=== PATIENT | female | born 1965 | race Caucasian/White ===

== ENCOUNTER 2023-05-23 09:15 | Emergency (ER) | payer OTHER ==
[~2023-05-23] VITALS: Ht 172.7 cm; Wt 64.0 kg
[2023-05-23 10:35] LABS: BASOPHILS % 0.8 % (0.0-2.0); CHLORIDE 96 mEq/L (98-107); EOSINOPHILS % 0.7 % (0.0-5.0); HEMATOCRIT. 31.2 % (36.0-48.0); HEMOGLOBIN. 10.1 g/dL (12.0-16.0); INDEX HEMOLYSI 1 (1-3); INDEX ICTERIC 1 (1-4); INDEX LIPEMIC 1 (1-3); LYMPHOCYTES % 7.5 % (20.0-50.0); MEAN CORPUSCULAR HEMOGLOBIN 27.8 pg (28.0-32.0); MEAN CORPUSCULAR HGB CONC 32.2 g/dL (31.0-37.0); MEAN CORPUSCULAR VOLUME 86.2 fL (81.0-99.0); PLATELET 276 x1000/uL (130-400); POTASSIUM 5.6 mEq/L (3.5-5.1); RED BLOOD CELL COUNT 3.62 mill/uL (4.2-5.4); RED CELL DISTRIBUTION WIDTH 17.6 % (11.6-14.6); SODIUM 131 mEq/L (136-145)
[2023-05-23 10:43] LABS: ALANINE AMINOTRANSFERASE 22 IU/L (13-61); ALBUMIN 2.8 g/dL (3.4-5.0); ASPARTATE AMINOTRANSFERASE 29 IU/L (15-37); BILIRUBIN TOTAL 1.1 mg/dL (0.1-1.0); CALCIUM 8.4 mg/dL (8.5-10.1); CARBON DIOXIDE 23 mEq/L (21-32); CREATININE 4.3 mg/dL (0.6-1.3); GLUCOSE 259 mg/dL (70-105); INR 1.2; PROTEIN TOTAL 8.5 g/dL (6.0-8.3); PROTHROMBIN TIME 12.4 sec (9.6-11.0); TROPONIN I HIGH SENSITIVITY 30 ng/L (<54); UREA NITROGEN BLOOD 50 mg/dL (7-21)
[2023-05-23] MEDS ORDERED: SODIUM CHLORIDE 0.9% 500 ML IV ONE (12:00)
[2023-05-23 12:35] LABS: NT PRO B-TYPE NATRIURETIC PEP > 175000 pg/mL (5-125)
[2023-05-23] MEDS ORDERED: DEXTROSE 50% WATER 50ML SYRINGE IV ONE (12:45)
[2023-05-23] MEDS ORDERED: INSULIN REGULAR (HUMULIN R) 300UNITS/3ML VIAL IV ONE (12:45)
[2023-05-23] MEDS ORDERED: CALCIUM GLUCONATE 1,000 MG in DEXT 5% WATER 100 ML IV ONE (12:45)
[2023-05-23] MEDS: ALBUTEROL (0.083%) 2.5MG/3ML NEB HHN SCH ×3 (13:00→14:00)
[2023-05-23] MEDS ORDERED: CALCIUM GLUCONATE 1GM PREMIX 50 ML IV NR (13:30)
[2023-05-23 15:04] VITALS: PULSE 54; RESP 20; O2SAT 98
[2023-05-23 16:24] VITALS: BP 118/46; PULSE 60; RESP 18; TEMP 97.8
== END 2023-05-23 16:38 | disposition home or self-care (01) ==
LOC: ER 09:15
DX: I12.0 Hypertensive chronic kidney disease with stage 5 chronic kidney disease or end stage renal disease (principal); E11.22 Type 2 diabetes mellitus with diabetic chronic kidney disease; N18.6 End stage renal disease; E87.5 Hyperkalemia; R06.02 Shortness of breath
CPT/HCPCS: 80053; 83880; 83605; 85025; 85610; 87040; 84484; 36415; 84145; 71045; 94640; 93005; 96361; 96374; 96375; 99285; J0610; J1815; Z7610 ×4; J7060; J7040